=== PATIENT | male | born 1955 | race Caucasian/White ===

== ENCOUNTER 2025-07-19 22:44 | Inpatient (IN) | payer BC, MEDICARE ==
[~2025-07-19] VITALS: Ht 182.9 cm; Wt 86.2 kg
[2025-07-19 22:48] VITALS: O2SAT 99
[2025-07-19 23:31] LABS: BASOPHILS % 1.2 % (0.0-2.0); EOSINOPHILS % 1.2 % (0.0-5.0); HEMATOCRIT. 44.8 % (42.0-52.0); HEMOGLOBIN. 14.6 g/dL (14.0-18.0); LYMPHOCYTES % 19.4 % (20.0-50.0); MEAN PLATELET VOLUME 7.1 fl (7.4-10.4); MONOCYTES % 11.0 % (2.0-8.0); NEUTROPHILS % 67.2 % (40.0-76.0); PLATELET 198 x1000/uL (130-400); RED BLOOD CELL COUNT 4.94 mill/uL (4.7-6.1); RED CELL DISTRIBUTION WIDTH 14.8 % (11.6-14.6)
[2025-07-19 23:33] LABS: INR 1.0
[2025-07-19 23:38] LABS: CREATININE 1.3 mg/dL (0.6-1.3)
[2025-07-19 23:39] LABS: ETHANOL BLOOD < 10 mg/dL (<10); PROTEIN TOTAL 6.0 g/dL (6.0-8.3); TROPONIN I HIGH SENSITIVITY 5 ng/L (3.0-53); UREA NITROGEN BLOOD 11 mg/dL (9-23)
[2025-07-19 23:40] LABS: ASPARTATE AMINOTRANSFERASE 23 IU/L (<34)
[2025-07-19 23:41] LABS: BILIRUBIN DIRECT 0.5 mg/dL (<=3.0); BILIRUBIN TOTAL 2.0 mg/dL (0.1-1.0)
[2025-07-20] VITALS (13 sets, daily range): BP systolic 104–172; BP diastolic 75–98; PULSE 49–71; RESP 15–25; TEMP 36.6–37.2; O2SAT 95–99
[2025-07-20] MEDS ORDERED: FINA5TAB11 MT (02:04)
[2025-07-20] MEDS ORDERED: APIX5TAB MT (02:04)
[2025-07-20] MEDS ORDERED: LOSA50TA41 MT (02:04)
[2025-07-20] MEDS ORDERED: CLON0.1T PO (02:04)
[2025-07-20] MEDS ORDERED: AMI2 MT (02:04)
[2025-07-20] MEDS ORDERED: PANT40TA51 MT (02:04)
[2025-07-20] MEDS ORDERED: METO25TA6 PO (02:04)
[2025-07-20] MEDS: PANTOPRAZOLE 40MG DR TABLET PO SCH (06:01)
[2025-07-20] MEDS: INFLUENZA VACCINE 05/PF 0.5 ML SYRINGE IM ONE (06:02)
[2025-07-20] MEDS: PNEUMOCOCCAL 20-VAL CONJ-DIP CRM 0.5ML IM ONE (06:03)
[2025-07-20 06:50] LABS: CREATININE 1.1 mg/dL (0.6-1.3); TRIGLYCERIDE 145 mg/dL (0-150); UREA NITROGEN BLOOD 13 mg/dL (9-23)
[2025-07-20 06:50] LABS: BASOPHILS % 1.1 % (0.0-2.0); EOSINOPHILS % 1.4 % (0.0-5.0); HEMATOCRIT. 41.7 % (42.0-52.0); HEMOGLOBIN. 13.8 g/dL (14.0-18.0); LYMPHOCYTES % 21.8 % (20.0-50.0); MEAN PLATELET VOLUME 7.5 fl (7.4-10.4); MONOCYTES % 9.5 % (2.0-8.0); NEUTROPHILS % 66.2 % (40.0-76.0); PLATELET 152 x1000/uL (130-400); RED BLOOD CELL COUNT 4.65 mill/uL (4.7-6.1); RED CELL DISTRIBUTION WIDTH 14.4 % (11.6-14.6)
[2025-07-20 06:51] LABS: LDL CHOLESTEROL 115 mg/dL (5-100); TROPONIN I HIGH SENSITIVITY 6 ng/L (3.0-53)
[2025-07-20 07:53] LABS: HEPATITIS C AB NON REACTIVE (Neg) (Negative)
[2025-07-20] MEDS: APIXABAN 5 MG TABLET PO SCH (09:18)
[2025-07-20] MEDS: FINASTERIDE 5MG TABLET PO SCH (09:18)
[2025-07-20] MEDS: AMIODARONE 200MG TABLET PO SCH (09:18)
[2025-07-20] MEDS: LOSARTAN 50 MG TABLET PO SCH (09:18)
[2025-07-20] MEDS ORDERED: CLONIDINE 0.1MG TABLET PO SCH (20:15)
[2025-07-20] MEDS: NITROGLYCERIN 0.4MG TABLET SL SL PRN (20:23)
[2025-07-20] MEDS: ATORVASTATIN CALCIUM 40MG TABLET PO SCH (20:37)
[2025-07-20] MEDS ORDERED: CLONIDINE 0.1MG TABLET PO PRN (20:45)
[2025-07-20] MEDS ORDERED: PNEUMOCOCCAL 20-VAL CONJ-DIP CRM 0.5ML IM ONE (21:00)
[2025-07-20 22:26] LABS: PROTEIN TOTAL 5.4 g/dL (6.0-8.3)
[2025-07-20 22:28] LABS: ASPARTATE AMINOTRANSFERASE 17 IU/L (<34); BILIRUBIN DIRECT 0.5 mg/dL (<=3.0); BILIRUBIN TOTAL 2.0 mg/dL (0.1-1.0); TROPONIN I HIGH SENSITIVITY 6 ng/L (3.0-53)
[2025-07-20] MEDS: ACETAMINOPHEN 325MG TABLET PO PRN (22:54)
[2025-07-21] VITALS: BP 97/67; PULSE 56; RESP 18; TEMP 37; O2SAT 99
[2025-07-21 04:00] VITALS: BP 118/90; PULSE 52; RESP 14; TEMP 36.6; O2SAT 100
[2025-07-21 07:01] LABS: CREATININE 1.1 mg/dL (0.6-1.3)
[2025-07-21 07:02] LABS: TROPONIN I HIGH SENSITIVITY 8 ng/L (3.0-53)
[2025-07-21 07:02] LABS: PROTEIN TOTAL 5.3 g/dL (6.0-8.3); UREA NITROGEN BLOOD 11 mg/dL (9-23)
[2025-07-21 07:03] LABS: ASPARTATE AMINOTRANSFERASE 18 IU/L (<34)
[2025-07-21 07:04] LABS: BASOPHILS % 1.2 % (0.0-2.0); EOSINOPHILS % 1.6 % (0.0-5.0); HEMATOCRIT. 40.9 % (42.0-52.0); HEMOGLOBIN. 13.3 g/dL (14.0-18.0); LYMPHOCYTES % 14.0 % (20.0-50.0); MEAN PLATELET VOLUME 7.4 fl (7.4-10.4); MONOCYTES % 11.2 % (2.0-8.0); NEUTROPHILS % 72.0 % (40.0-76.0); PLATELET 156 x1000/uL (130-400); RED BLOOD CELL COUNT 4.49 mill/uL (4.7-6.1); RED CELL DISTRIBUTION WIDTH 14.6 % (11.6-14.6)
[2025-07-21 07:04] LABS: BILIRUBIN TOTAL 1.8 mg/dL (0.1-1.0)
[2025-07-21 08:00] VITALS: BP 152/98; PULSE 50; RESP 16; TEMP 36.7; O2SAT 100
[2025-07-21 11:42] LABS: TROPONIN I HIGH SENSITIVITY 5 ng/L (3.0-53)
[2025-07-21 12:00] VITALS: BP 110/74; PULSE 59; RESP 22; TEMP 36.7; O2SAT 98
[2025-07-21 16:00] VITALS: BP 130/78; PULSE 49; RESP 18; TEMP 36.7; O2SAT 98
[2025-07-21 18:11] VITALS: BP 130/78; PULSE 59; RESP 19; TEMP 98.4
[2025-07-22] MEDS ORDERED: FAMOTIDINE 20MG TABLET PO SCH (09:00)
== END 2025-07-21 20:35 | disposition home or self-care (01) | DRG 392 ==
LOC: ER 22:44 → 3WST 23:51 → EDBEDREQTM 07-20 00:20 → EDBEDREQ 07-20 00:20 → ENRESERV 07-20 00:35
PROVIDERS: ADMIT Internal Medicine; ATTEND Internal Medicine
DX: R10.13 Epigastric pain (principal); E78.5 Hyperlipidemia, unspecified; Z79.01 Long term (current) use of anticoagulants; I10 Essential (primary) hypertension; I48.0 Paroxysmal atrial fibrillation; E80.6 Other disorders of bilirubin metabolism; K80.20 Calculus of gallbladder without cholecystitis without obstruction; Z79.899 Other long term (current) drug therapy
CPT/HCPCS: 36415; 71045; 76700; 80048; 80053; 80061; 80076; 80320; 83880; 84443; 84484; 85025; 85379; 86705; 87340; 90686; 90732; 93005; 93970; 99285; A4606; G0480